=== PATIENT | female | born 1940 | race Caucasian/White ===

== ENCOUNTER 2018-07-25 14:31 | Observation (INO) | payer MEDICARE, OTHER ==
--- NOTE | 2018-07-25 15:12 | ERNOTE ---
GI Bleeding/Rectal Pain ER Presenting Symptoms: rectal bleeding Time Seen by Provider: 07/25/18 14:56 Source: patient Exam Limitations: no limitations Immunizations: IMMUNIZATION HX Immunizations Up to Date Yes History of Influenza Vaccine No Hx Pneumococcal Vaccination Yes Allergies/Adverse Reactions: Allergies lidocaine Allergy (Verified 07/25/18 14:47) Anaphylaxis Penicillins Allergy (Verified 07/25/18 14:47) Anaphylaxis IV dye Allergy (Uncoded 07/25/18 14:47) Swelling of Face Home Medications: HOME MEDICATIONS Diltiazem HCl [Cardizem Cd] 180 mg PO DAILY 07/25/18 [Last Taken Unknown] Hydrochlorothiazide 12.5 mg PO DAILY 07/25/18 [Last Taken Unknown] Meloxicam [Mobic] 15 mg PO DAILY 07/25/18 [Last Taken Unknown] Metoprolol Succinate [Toprol Xl] 100 mg PO DAILY 07/25/18 [Last Taken Unknown] Narrative: Patient stated that yesterday she had some clotting when she was having a bowel movement and this morning she had excessive amounts of blood in there in her bowel movement. Patient denies any significant pain, she states she simply has some lower abdominal discomfort. Timing: constant Quality/Severity: Present: moderate Nausea/Vomiting: Absent: blood, coffee grounds Rectal Bleeding: Present: without stool Associated Symptoms: Denies: maroon stools, black stools Review of Systems - Review of Systems Constitutional: Present: See HPI EYE: Present: no symptoms reported ENT: Present: no symptoms reported Respiratory: Present: no symptoms reported Cardiology: Present: no symptoms reported Gastrointestinal/Abdominal: Present: See HPI Genitourinary: Present: no symptoms reported Musculoskeletal: Present: no symptoms reported Skin: Present: no symptoms reported Neurological: Present: no symptoms reported Endocrine: Present: no symptoms reported Hematologic/Lymphatic: Present: no symptoms reported Psych: Present: no symptoms reported Medical History (Last Updated 07/25/18 @ 15:13 by Ritesh Mclaughlin DO) Hypertension Social History: Preferred Language Irish Do you have any religion or Yes: presbeterian cultural preference? Smoking Status Former smoker Have you smoked in the past 12 No months Do you dip or chew tobacco No Alcohol Use heavy Drug Use none Physical Exam - Physical Exam General Appearance: Present: wd/wn, alert, no apparent distress Head Exam: Present: normal inspection, no evidence of injury Eye Exam: Normal inspection: bilateral, PERRL: bilateral Ears, Nose, Throat: Present: normal ENT inspection, H, normal pharynx Neck: Present: normal inspection, nontender Respiratory: Present: no respiratory distress, normal breath sounds, no accessory muscle use, chest nontender, lungs clear Cardiovascular/Chest: Present: regular rate, rhythm, no murmur, normal peripheral pulses Gastrointestinal/Abdominal: Present: normal bowel sounds, nontender, nondistended, soft, no organomegaly Rectal Exam: Present: other - right red blood pouring from rectum Back Exam: Present: normal inspection, normal range of motion Extremity Exam: Present: normal inspection, non-tender, no edema, normal range of motion Neurological Exam: Present: alert, oriented, normal mood/affect Skin Exam: Present: normal color, warm/dry Lymphatic Exam: Present: no adenopathy ED Progress - Results and Orders Patient's Lab Results:: I have reviewed the patient's lab results. - Vital Signs Patient's Vital Signs:: I have reviewed the patient's vital signs. Vital Signs: Vital Signs 07/25/18 14:40 Temperature 36.9 C Pulse Rate 99 Respiratory Rate 14 Blood Pressure 153/102 H O2 Sat by Pulse Oximetry 97 - Progress/Reassessment Chief Complaint: Rectal Bleeding Plan - Plan Plan: Unclear etiology for the painless and relatively copious GI bleed. Possible considerations could be a polyp, colon cancer, diverticulosis or diverticulitis. Patient will be admitted for serial H&H's and a surgical consult has been sought with Dr. Kirkpatrick. Departure Clinical Impression: GI bleed Qualifiers: GI bleed type/associated pathology: anorectal hemorrhage Qualified Code(s): K62.5 - Hemorrhage of anus and rectum - Departure Disposition: Still a patient Condition: Fair
[2018-07-25 15:27] LABS: Hematocrit 39.3 % (37.0-47.0); Hemoglobin 13.1 gm/dL (12.5-16.0); Mean Corpuscular Hemoglobin 28.7 pg (27-31); Mean Corpuscular Hgb Conc 33.3 g/dl (32-36); Mean Platelet Volume 9.8 fl (8-12.5); Neutrophil # 6.1 K/mm3 (1.3-6.0); Neutrophil % 64.2 % (42-75.0); Platelet Count 278 K/mm3 (150-450); Red Blood Count 4.57 M/mm3 (4.2-5.4); Red Cell Distribution Width 15.6 % (11.5-14.0); White Blood Count 9.5 K/mm3 (4.0-10.5)
[2018-07-25 15:38] LABS: Partial Thrombolplastin Time 24.6 Seconds (24-32)
[2018-07-25 15:40] LABS: Albumin * 3.5 gm/dl (3.4-5.0); BUN/Creatinine Ratio 24.1 (9.0-21.6); Bilirubin, Total 0.3 mg/dL (0.0-1.1); Ca. Corrected For Albumin 9.3 mg/dL (8.4-10.2); Calcium * 9.2 mg/dL (7.9-10.9); Carbon Dioxide 30.5 mmol/L (24-32.6); Magnesium 1.8 mg/dL (1.2-2.8); Potassium 3.5 mmol/L (3.4-4.6); Total Protein 7.1 gm/dL (6.2-8.2)
--- NOTE | 2018-07-25 19:00 | CONS ---
- Reason for consultation (1) GI bleed Date of Service: 07/25/18 HPI - General Source: patient, RN/MD, RN notes reviewed Exam Limitations: no limitations - History of Present Illness Initial Comments: She moved her bowels normally yesterday morning. Later in the day she went to the bathroom again and passed some bright red blood. She has had more rectal bleeding today. She has not been lightheaded. She has had no pain. Timing/Duration: other Associated Symptoms: denies symptoms Allergies/Adverse Reactions: Allergies lidocaine Allergy (Verified 07/25/18 14:47) Anaphylaxis Penicillins Allergy (Verified 07/25/18 14:47) Anaphylaxis IV dye Allergy (Uncoded 07/25/18 14:47) Swelling of Face Home Medications: Home Medications Medication Instructions Recorded Last Taken Biotin 5 mg PO DAILY 07/25/18 07/25/18 Diltiazem HCl [Cardizem Cd] 180 mg PO DAILY 07/25/18 07/25/18 Hydrochlorothiazide 12.5 mg PO DAILY 07/25/18 07/25/18 Meloxicam [Mobic] 15 mg PO DAILY 07/25/18 07/25/18 Metoprolol Succinate [Toprol Xl] 100 mg PO DAILY 07/25/18 07/25/18 Multivitamin [Multivitamins] 1 each PO DAILY 07/25/18 07/25/18 Pantothenic Acid 500 mg PO DAILY 07/25/18 07/25/18 Review of Systems - Review of Systems Generalized/Overall Review: Present: No Symptoms Reported. Absent: Chills, Fever EENTM: Present: No Symptoms Reported Respiratory: Present: No Symptoms Reported. Absent: Shortness of Breath Cardiac: Absent: Chest Pain, Palpitations, Syncope Abdominal: Present: Bright blood from rectum Genitourinary: Present: No Symptoms Reported Musculoskeletal: Present: No Symptoms Reported Neurological: Present: No Symptoms Reported Skin: Present: No Symptoms Reported Physical Examination - Exam Vital Signs: Vital Signs - Last Taken Temp 36.6 C 07/25/18 17:38 Pulse 74 07/25/18 17:41 Resp 14 07/25/18 17:38 BP 154/99 H 07/25/18 17:38 Pulse Ox 94 07/25/18 17:38 O2 Oxygen Delivery Method Room Air Constitutional: Present: Alert, Oriented x3, Cooperative, No distress, Overweight ENT Exam: Present: normal ENT inspection Eye Exam: bilateral eye: normal inspection Neck: Present: normal inspection Respiratory: Present: no respiratory distress Cardiovascular/Chest: Present: regular rate, rhythm Abdomen: Present: other - Obese. She denies abdominal pain or tenderness. /Rectal: Present: Other - Rectal exam by Dr. Mclaughlin revealed blood but no obvious bleeding hemorrhoid and no rectal mass Extremity: Present: normal range of motion Skin Exam: Present: normal color Neurologic: Present: liability analyst II-XII nml as tested, no motor/sensory deficits Appearance: Present: appropriate appearance, appropriate insight Eye contact: Present: cooperative, good eye contact, normal speech Thoughts: Present: normal thought pattern - Results and Findings: Lab/Microbiology results last 24 hrs: Abnormal/Pending Laboratory Last 24 HRS 07/25/18 07/25/18 07/25/18 15:24 15:20 15:20 RDW 15.6 H Lymphocytes % 19.7 L Eosinophils % 7.1 H Neutrophils # 6.1 H BUN/Creatinine Ratio 24.1 H Random Glucose 123 H Stool Occult Blood Positive H - Assessments/Findings (1) GI bleed Diagnosis(s): Her starting hemoglobin is normal. She is hemodynamically stable. Her BUN and creatinine are normal, she has no upper GI complaints, and the blood is red suggesting a colonic source. She had a colonoscopy 9 years ago. There were no polyps. She is familiar with the term diverticulosis but does not know if she has it or not. IMPRESSION: Lower GI bleeding, most likely diverticular. Currently hemodynamically stable RECOMMENDATION: Would keep her n.p.o. tonight. Serial hemoglobin and hematocrit determinations. Cannot obtain a nuclear medicine red blood cell study. Colonoscopy should be considered, however without prep it will be difficult If she remains stable, she could be discharged with a colonoscopy as an outpatient. She is from [place] and may prefer to pursue that there. A pamphlet on colonoscopy was reviewed with her and given to her. I will follow the patient Problem: Acute Qualifiers: GI bleed type/associated pathology: anorectal hemorrhage Qualified Code(s) : K62.5 - Hemorrhage of anus and rectum
--- NOTE | 2018-07-25 21:49 | HP ---
Chief Complaint - Chief Complaint Date of Service: 07/25/18 Time of Service: 21:43 Chief Complaint: bright red blood per rectum History of Present Illness: 78 yo female here for 1 day of BRBPR, she has never had this issue before. She states that she had no problems yesterday. Woke up this morning with some bleeding that seemed to improve throughout the day. Then this evening, she went to the restroom and had large amounts of bleeding. She denies being dizzy, short of breath, vision changes, headache, rapid heart rate. She denies abdominal pain, N/V. She does not have a hx of GERD. Her hemoglobin was 13.[address] Kirkpatrick was consulted. She has a hx of HTN Medical History (Last Updated 07/25/18 @ 17:08 by Ana Nina RN) Arthritis Hypertension Surgical History: Surgical History (Last Updated 07/25/18 @ 17:10 by Ana Nina RN) After cataract, bilateral History of hysterectomy Hx of cholecystectomy Knee arthropathy Family History: Family History (Last Updated 07/25/18 @ 17:12 by Ana Nina RN) Mother CHF (congestive heart failure) Hypertension Father Arthritis CHF (congestive heart failure) Social History: Patient Lives/Resources With Spouse Utilized Occupation retired Preferred Language Frisian Do you have any christian or Yes: Prep cultural preference? Smoking Status Former smoker Have you smoked in the past 12 No months Do you dip or chew tobacco No Alcohol Use heavy Drug Use none Review Of Systems (GEN) - Review of Systems Generalized/Overall Review: Present: No Symptoms Reported EENTM: Present: No Symptoms Reported Respiratory: Present: No Symptoms Reported Cardiac: Present: No Symptoms Reported Abdominal: Present: Bright blood from rectum. Absent: Nausea, Abdominal Pain Genitourinary: Present: No Symptoms Reported Musculoskeletal: Present: No Symptoms Reported Neurological: Present: No Symptoms Reported Skin: Present: No Symptoms Reported Endocrine: Present: No Symptoms Reported Immunizations: IMMUNIZATION HX Immunizations Up to Date Yes History of Influenza Vaccine No Hx Pneumococcal Vaccination Yes Allergies/Adverse Reactions: Allergies Allergy/AdvReac Type Severity Reaction Status Date / Time lidocaine Allergy Anaphylaxis Verified 07/25/18 14:47 Penicillins Allergy Anaphylaxis Verified 07/25/18 14:47 IV dye Allergy Swelling Uncoded 07/25/18 14:47 of Face Home Medications: HOME MEDICATIONS Biotin 5 mg PO DAILY 07/25/18 [Last Taken 07/25/18] Diltiazem HCl [Cardizem Cd] 180 mg PO DAILY 07/25/18 [Last Taken 07/25/18] Hydrochlorothiazide 12.5 mg PO DAILY 07/25/18 [Last Taken 07/25/18] Meloxicam [Mobic] 15 mg PO DAILY 07/25/18 [Last Taken 07/25/18] Metoprolol Succinate [Toprol Xl] 100 mg PO DAILY 07/25/18 [Last Taken 07/25/18] Multivitamin [Multivitamins] 1 each PO DAILY 07/25/18 [Last Taken 07/25/18] Pantothenic Acid 500 mg PO DAILY 07/25/18 [Last Taken 07/25/18] Exam - Exam Vital Signs: Vital Signs - Last Taken Temp 36.5 C 07/25/18 20:13 Pulse 60 07/25/18 20:13 Resp 18 07/25/18 20:13 BP 129/71 07/25/18 20:13 Pulse Ox 98 07/25/18 20:13 Constitutional: Present: Alert, Oriented x3, Cooperative Neck: Present: non-tender, supple, normal inspection Back Exam: Present: normal inspection Respiratory: Present: chest non-tender, lungs clear, normal breath sounds Cardiovascular/Chest: Present: normal peripheral pulses, regular rate, rhythm, no edema Abdomen: Present: Normal bowel sounds, soft, nontender /Rectal: Present: Exam deferred Skin Exam: Present: normal color, warm/dry Appearance: Present: appropriate appearance, appropriate insight Eye contact: Present: cooperative, good eye contact Thoughts: Present: normal thought pattern, normal mood /affect Diagnostic Studies: Abnormal Lab Results 07/25/18 07/25/18 07/25/18 Range/Units 15:20 15:20 15:24 RDW 15.6 H (11.5-14.0) % Lymphocytes % 19.7 L (20-51) % Eosinophils % 7.1 H (0.0-3.0) % Neutrophils # 6.1 H (1.3-6.0) K/mm3 BUN/Creatinine Ratio 24.1 H (9.0-21.6) Random Glucose 123 H (70-110) mg/dL Stool Occult Blood Positive H Laboratory Results WBC 9.5 K/mm3 (4.0-10.5) 07/25/18 15:20 RBC 4.57 M/mm3 (4.2-5.4) 07/25/18 15:20 Hgb 13.1 gm/dL (12.5-16.0) 07/25/18 15:20 Hct 39.3 % (37.0-47.0) 07/25/18 15:20 MCV 86.0 fl (78-100) 07/25/18 15:20 MCH 28.7 pg (27-31) 07/25/18 15:20 MCHC 33.3 g/dl (32-36) 07/25/18 15:20 RDW 15.6 % (11.5-14.0) H 07/25/18 15:20 Plt Count 278 K/mm3 (150-450) 07/25/18 15:20 MPV 9.8 fl (8-12.5) 07/25/18 15:20 Immature Gran % (Auto) 0.20 % (0.001-0.429) 07/25/18 15:20 Immature Gran # (Auto) 0.02 K/mm3 (0.000-0.0310) 07/25/18 15:20 Neutrophils % 64.2 % (42-75.0) 07/25/18 15:20 Lymphocytes % 19.7 % (20-51) L 07/25/18 15:20 Monocytes % 8.2 % (0.0-9) 07/25/18 15:20 Eosinophils % 7.1 % (0.0-3.0) H 07/25/18 15:20 Basophils % 0.6 % (0.0-1.0) 07/25/18 15:20 Nucleated RBC % 0.0 k/mm3 (0-1) 07/25/18 15:20 Neutrophils # 6.1 K/mm3 (1.3-6.0) H 07/25/18 15:20 Lymphocytes # 1.88 k/mm3 (1.5-3.5) 07/25/18 15:20 Monocytes # 0.8 k/mm3 (0.0-1.0) 07/25/18 15:20 Eosinophils # 0.7 k/mm3 (0.0-0.7) 07/25/18 15:20 Absolute Basophils 0.1 k/mm3 (0.0-0.1) 07/25/18 15:20 PT 10.0 Seconds (9.0-11.0) 07/25/18 15:20 INR (Anticoag Therapy) 1.00 INR (0.90-1.10) 07/25/18 15:20 PTT ([place]) 24.6 Seconds (24-32) 07/25/18 15:20 Sodium 137 mmol/L (132-142) 07/25/18 15:20 Plasma Sodium 137 mmol/L (130-142) 07/25/18 15:20 Potassium 3.5 mmol/L (3.4-4.6) 07/25/18 15:20 Chloride 101 mmol/L (97-106) 07/25/18 15:20 Carbon Dioxide 30.5 mmol/L (24-32.6) 07/25/18 15:20 Anion Gap 9.0 mmol/L (6.8-13.8) 07/25/18 15:20 BUN 21 mg/dL (3-23) 07/25/18 15:20 Creatinine 0.87 mg/dL (0.4-1.4) 07/25/18 15:20 Est GFR (Non-Af Amer) 67 mL/min (60-130) 07/25/18 15:20 BUN/Creatinine Ratio 24.1 (9.0-21.6) H 07/25/18 15:20 Random Glucose 123 mg/dL (70-110) H 07/25/18 15:20 Calcium 9.2 mg/dL (7.9-10.9) 07/25/18 15:20 Calcium Adj for Albumin 9.3 mg/dL (8.4-10.2) 07/25/18 15:20 Magnesium 1.8 mg/dL (1.2-2.8) 07/25/18 15:20 Total Bilirubin 0.3 mg/dL (0.0-1.1) 07/25/18 15:20 AST 23 U/L (0-48) 07/25/18 15:20 ALT 25 U/L (19-67) 07/25/18 15:20 Alkaline Phosphatase 110 U/L (50-170) 07/25/18 15:20 Total Protein 7.1 gm/dL (6.2-8.2) 07/25/18 15:20 Albumin 3.5 gm/dl (3.4-5.0) 07/25/18 15:20 Stool Occult Blood Positive H 07/25/18 15:24 Blood Type A Positive 07/25/18 15:20 Antibody Screen Negative 07/25/18 15:20 Assessment/Plan - Assessment/Plan (1) HTN (hypertension) Problem: Acute (2) GI bleed Assessment: Patient on clears. Will make NPO at midnight in case Dr. Kirkpatrick wants to scope her tomorrow. Will repeat H/H, if stable than out patient workup appropriate. Problem: Acute Qualifiers: GI bleed type/associated pathology: anorectal hemorrhage Qualified Code(s) : K62.5 - Hemorrhage of anus and rectum
[2018-07-26 05:55] LABS: Hematocrit 31.7 % (37.0-47.0); Hemoglobin 10.6 gm/dL (12.5-16.0); Mean Cell Volume 85.7 fl (78-100); Mean Corpuscular Hemoglobin 28.6 pg (27-31); Mean Corpuscular Hgb Conc 33.4 g/dl (32-36); Mean Platelet Volume 10.5 fl (8-12.5); Neutrophil # 3.2 K/mm3 (1.3-6.0); Neutrophil % 53.3 % (42-75.0); Platelet Count 216 K/mm3 (150-450); Red Cell Distribution Width 15.4 % (11.5-14.0); White Blood Count 6.1 K/mm3 (4.0-10.5)
[2018-07-26] MEDS ORDERED: HYDROCHLOROTHIAZIDE 12.5 MG CAPSULE PO SCH (09:00)
[2018-07-26] MEDS ORDERED: DILTIAZEM HCL 180 MG CAP.SR.24H PO SCH (09:00)
[2018-07-26] MEDS ORDERED: METOPROLOL SUCCINATE 100 MG TABLET.SA PO SCH (09:00)
--- NOTE | 2018-07-26 09:05 | DS ---
(1) HTN (hypertension) Problem: Chronic (2) GI bleed Problem: Acute Qualifiers: GI bleed type/associated pathology: anorectal hemorrhage Qualified Code(s) : K62.5 - Hemorrhage of anus and rectum Description of Stay: Radha was admitted for obs due to camilla blood in her stool yesterday. She had significant bleeding only on day of admission, she has never had any GI issues prior to this. She has been asymptomatic since her arrival. She had minimal bleeding this AM but significantly improved compared to the day before. Her hemoglobin in the ER was 13.1 and she was hemoccult +. It dropped to 10.6 on day of discharge. Her VS were stable overnight. Dr. Kirkpatrick was consulted, we discussed her case and we agree that she does not need to be scoped inpatient but can be followed out of the hospital. The issue is, she is from [place] and is planning on headed home in 3 days. Since she is asymptomatic and no longer acutely bleeding, she agreed to come into the clinic tomorrow for a repeat hemoglobin. If it continues to drop, will get her into see Dr. Kirkpatrick for a scope. If it continues to be stable than she agrees to follow up with her physicians back home which is what she would like to do. Procedures Performed: none Results and Findings: Lab Pending Results 07/25/18 15:20: WBC 9.5, RBC 4.57, Hgb 13.1, Hct 39.3, MCV 86.0, MCH 28.7, MCHC 33.3, RDW 15.6 H, Plt Count 278, MPV 9.8, Immature Gran % (Auto) 0.20, Immature Gran # (Auto) 0.02, Neutrophils % 64.2, Lymphocytes % 19.7 L, Monocytes % 8.2, Eosinophils % 7.1 H, Basophils % 0.6, Nucleated RBC % 0.0, Neutrophils # 6.1 H, Lymphocytes # 1.88, Monocytes # 0.8, Eosinophils # 0.7, Absolute Basophils 0.1 07/25/18 15:20: PT 10.0, INR (Anticoag Therapy) 1.00, PTT ([place]) 24.6 07/25/18 15:20: Sodium 137, Plasma Sodium 137, Potassium 3.5, Chloride 101, Carbon Dioxide 30.5, Anion Gap 9.0, BUN 21, Creatinine 0.87, Est GFR (Non-Af Amer) 67, BUN/Creatinine Ratio 24.1 H, Random Glucose 123 H, Calcium 9.2, Calcium Adj for Albumin 9.3, Magnesium 1.8, Total Bilirubin 0.3, AST 23, ALT 25 , Alkaline Phosphatase 110, Total Protein 7.1, Albumin 3.5 07/25/18 15:20: Blood Type A Positive, Antibody Screen Negative 07/25/18 15:24: Stool Occult Blood Positive H 07/26/18 05:15: WBC 6.1 D, RBC 3.70 L, Hgb 10.6 L, Hct 31.7 L, MCV 85.7, MCH 28.6, MCHC 33.4, RDW 15.4 H, Plt Count 216, MPV 10.5, Immature Gran % (Auto) 0.30, Immature Gran # (Auto) 0.02, Neutrophils % 53.3, Lymphocytes % 24.8, Monocytes % 9.6 H, Eosinophils % 11.2 H, Basophils % 0.8, Nucleated RBC % 0.0, Neutrophils # 3.2, Lymphocytes # 1.50, Monocytes # 0.6, Eosinophils # 0.7, Absolute Basophils 0.1 Discharge Location: Home Disposition: Home self-care Condition: Fair Discharge Activity: Activity as tolerated Discharge Diet: General/regular food Referrals: Omi Lares DO [Staff Physician] - 07/27/18 Additional Patient Instructions (free text): Return to the ER immediately if bleeding returns or worsens, if you develop dizziness/Chest pain/Shortness of breath/abdominal pain Complete Home Medications List: Complete Home Medication List: Biotin 5 mg PO DAILY 07/25/18 Diltiazem HCl [Cardizem Cd] 180 mg PO DAILY 07/25/18 Hydrochlorothiazide 12.5 mg PO DAILY 07/25/18 Meloxicam [Mobic] 15 mg PO DAILY 07/25/18 Metoprolol Succinate [Toprol Xl] 100 mg PO DAILY 07/25/18 Multivitamin [Multivitamins] 1 each PO DAILY 07/25/18 Pantothenic Acid 500 mg PO DAILY 07/25/18
[2018-07-26 10:03] VITALS: BP 138/72
== END 2018-07-26 10:42 | disposition home or self-care (01) ==
LOC: ER 14:31 → MS 14:31
PROVIDERS: ADMIT Family Medicine; ATTEND Family Medicine
DX: K92.2 Gastrointestinal hemorrhage, unspecified
CPT/HCPCS: 36415; 80053; 82272; 83735; 85025; 85610; 85730; 86850; 86900; 99284; G0378